=== PATIENT | male | born 1940 | race Caucasian/White ===

== ENCOUNTER 2022-09-12 12:49 | Outpatient (CLI) | payer MEDICARE, BC | END 2022-09-12 12:50 | disposition home or self-care (01) | LOC: CSHULT 12:49 | PROVIDERS: ATTEND Psychiatry & Neurology Neurology | DX: I63.59 Cerebral infarction due to unspecified occlusion or stenosis of other cerebral artery (principal); I63.9 Cerebral infarction, unspecified; I08.1 Rheumatic disorders of both mitral and tricuspid valves; J98.4 Other disorders of lung; I67.82 Cerebral ischemia; Z86.73 Personal history of transient ischemic attack (TIA), and cerebral infarction without residual deficits | CPT/HCPCS: 70450; 93306; 93880 ==